=== PATIENT | male | born 1985 | race Caucasian/White ===

== ENCOUNTER 2018-02-22 14:48 | Emergency (ER) | payer BC ==
[2018-02-22 14:58] VITALS: O2SAT 96
[2018-02-22] MEDS ORDERED: Marcaine 0.5% SDV 10 ML IJ ONE (15:34)
[2018-02-22] MEDS ORDERED: Adacel Vial IM ONE ×2 (15:34→16:35)
[2018-02-22] MEDS ORDERED: Marcaine 0.5% SDV 10 ML ONE (15:38)
--- NOTE | 2018-02-22 16:09 | ERPHSYRPT ---
- History of Present Illness Time Seen by Provider: 02/22/18 15:27 Source: patient, family () Patient Subjective Stated Complaint: pt reports he cut his left hand with a knife on accident-denies numbness Triage Nursing Assessment: pt pale warm and dry upon arrival-bleeding controlled derrick 2 in lac noted Physician History: CC: cut hand Hx: 32 y/o healthy patient cut the left hand on a knife working at home. Unsure last tetanus vaccine. No other injuries. Some numbness to the left thumb. No other injuries. Occurred: just prior to arrival Severity of Pain-Max: moderate Severity of Pain-Current: moderate Extremities Pain Location: hand: left Allergies/Adverse Reactions: No Known Drug Allergies Allergy (Unverified 02/22/18 14:58) Home Medications: No Reportable Medications [No Reported Medications] 02/22/18 [History] Hx Tetanus, Diphtheria Vaccination/Date Given: No Hx Influenza Vaccination/Date Given: No Hx Pneumococcal Vaccination/Date Given: No Immunizations Up to Date: Yes - Review of Systems Constitutional: No Symptoms Neurological: Parasthesia (left thumb), No Focal Weakness - Past Medical History Pertinent Past Medical History: No - Past Surgical History Past Surgical History: No - Social History Smoking Status: Never smoker Drug Use: none Patient Lives Alone: No - Nursing Vital Signs Nursing Vital Signs: Initial Vital Signs Temperature 98.3 F 02/22/18 14:54 Pulse Rate 106 H 02/22/18 14:54 Respiratory Rate 18 02/22/18 14:54 Blood Pressure 152/10 02/22/18 14:54 O2 Sat by Pulse Oximetry 96 02/22/18 14:54 Pain Scale Pain Intensity 3 - Physical Exam General Appearance: alert Eyes, Ears, Nose, Throat Exam: moist mucous membranes Neck Exam: supple Cardiovascular/Respiratory Exam: regular rate/rhythm Neuro/Tendon Exam: normal motor functions, normal tendon functions, sensory deficit (mild decrease 2 point left thumb ulnar side), No motor deficit, No tendon function deficit Mental Status Exam: alert, oriented x 3, cooperative Skin Exam: warm, dry, laceration (3cm left hand prox thumb/hand), No rash SpO2 Interpretation: normal SpO2: 96 Oxygen Delivery: Room Air Procedures - Laceration/Wound Repair left hand Wound Location: Left, hand Wound Length (cm): 3 Wound's Depth, Shape: linear Wound Explored: no foreign body noted Irrigated: Yes (NS) Hibiclens Prep: Yes Anesthesia: marcaine 0.5 Volume Anesthetic (ccs): 4 Wound Repaired With: sutures Suture Size/Type: 4-0, prolene Number of Sutures: 4 Sterile Dressing Applied?: Yes Splint Applied?: Yes Progress: 02/22/18 16:53 Pt has nerve deficit. He understands but does not want referral to hand specialist. understands as well. He has deep verticle linear cut. ROM intact. No apparent tendon deficit. Will splint. Wound instr given. - Course Nursing assessment & vital signs reviewed: Yes Ordered Tests: Active Orders 24 hr Category Date Time Status Prepare for Sutures STAT Care 02/22/18 15:34 Active Sutures STAT Care 02/22/18 15:34 Active Wound Care STAT Care 02/22/18 15:34 Active Medication Summary Discontinued Medications Generic Name Dose Route Start Last Admin Trade Name Freq PRN Reason Stop Dose Admin Bupivacaine HCl 5 ml 02/22/18 15:34 02/22/18 16:37 Marcaine 0.5% Sdv 10 Ml IJ 02/22/18 15:35 5 ml STAT ONE Administration Bupivacaine HCl Confirm 02/22/18 15:38 Marcaine 0.5% Sdv 10 Ml Administered 02/22/18 15:39 Dose 10 ml .ROUTE .STK-MED ONE Diphtheria/Tetanus/Acell Pertussis 0.5 ml 02/22/18 15:34 02/22/18 16:36 Adacel Vial IM 02/22/18 15:35 0.5 ml .ONCE ONE Administration Diphtheria/Tetanus/Acell Pertussis Confirm 02/22/18 16:35 Adacel Vial Administered 02/22/18 16:36 Dose 0.5 ml IM .STK-MED ONE - Departure Time of Disposition: 16:54 Departure Disposition: Home Clinical Impression: Laceration of left hand Qualifiers: Encounter type: initial encounter Foreign body presence: without foreign body Qualified Code(s): S61.412A - Laceration without foreign body of left hand, initial encounter Condition: Stable Critical Care Time: No Referrals: MINDY TAYLOR [Primary Care Provider] - Instructions: Laceration Repair With Stitches (DC) Additional Instructions: Wear splint. Change dressing daily. Report any sign of infection right away. Suture removal in 12 days. You understand the nerve is partially injured and did not want to see hand specialist. LACERATION CARE 1. Do not use peroxide, merthiolate, alcohol, or betadine. 2. Keep wound clean and dry. 3. Change dressing if it becomes wet or soiled. 4. If you must work, wear protective covering. 5. You may return to the emergency department or see your family physician for suture removal. 6. See your family physician or return to the emergency department for any of the following signs or symptoms: A. Redness B. Swelling C. Discolored drainage D. Red streaks E. Elevated temperature F. Other signs of infection
[2018-02-22 17:55] VITALS: BP 141/88; PULSE 98
== END 2018-02-22 17:08 | disposition home or self-care (01) ==
LOC: ED 14:48
PROC: 0HQGXZZ Repair Left Hand Skin, External Approach (ICD-10-PCS; principal; 2018-02-22)
DX: S61.412A Laceration without foreign body of left hand, initial encounter (principal); W26.0XXA Contact with knife, initial encounter
CPT/HCPCS: 12002; 90471; 90715; 99283; 99284